=== PATIENT | male | born 1970 ===

== ENCOUNTER 2024-02-26 13:52 | Emergency (ER) | payer SELFPAY ==
[2024-02-26 14:50] VITALS: BP 106/68; PULSE 69; O2SAT 99
[2024-02-26 14:51] VITALS: BMI 25.4
[2024-02-26 14:57] VITALS: BP 103/54; PULSE 65; RESP 18; TEMP 36.6; O2SAT 98
[2024-02-26 14:58] LABS: Glucose, Whole Blood 550 mg/dL (60-115)
--- NOTE | 2024-02-26 15:20 | ECG_ITS ---
Test Reason : WEAKNESS Blood Pressure : / mmHG Vent. Rate : 070 BPM Atrial Rate : 070 BPM P-R Int : 164 ms QRS Dur : 084 ms QT Int : 440 ms P-R-T Axes : 076 018 034 degrees QTc Int : 475 ms Normal sinus rhythm Normal ECG No previous ECGs available Referred By: Kassy Mcbride Electronically Signed By:GARY AHMADI
--- NOTE | 2024-02-26 15:23 | ED_ITS ---
HPI - General Adult General Chief complaint: General Medical Stated complaint: HIGH BS,FROM [facility] PER EMS Time Seen by Provider: 02/26/24 14:50 Source: patient and EMS Mode of arrival: ambulatory Limitations: no limitations History of Present Illness ED Provider: Dr. Stephany Balderas HPI narrative: Patient comes to emergency room from [facility] complaining of high blood sugar. According to the facility they have been giving him his insulin. However, patient states that he was not given any insulin. Related Data Allergies Allergy/AdvReac Type Severity Reaction Status Date / Time No Known Allergies Allergy Verified 02/26/24 14:53 Review of Systems 2 Review of Systems: Constitutional : No Weight loss, No Fever, No Chills, No Night Sweats, No Fatigue, No Malaise ENT/Mouth : No Hearing loss, No Ear Pain, No Nasal Congestion, No Sinus Pain, No Hoarseness, No sore throat, No Rhinorrhea, No Swallowing Difficulty Eyes: No Eye Pain, No Swelling, No Redness, No Foreign Body, No Discharge, No Vision Changes Cardiovascular : No Chest Pain, No SOB, No Dyspnea on Exertion, No Orthopnea, No Edema, No Palpitations Respiratory : No Cough, No Sputum, No Wheezing, No Smoke Exposure, No Dyspnea Gastrointestinal : No Nausea, No Vomiting, No Diarrhea, No Constipation, No abdominal Pain, No Hematochezia, No Melena Genitourinary : no irregular bleeding, No Dysuria, No Urinary Frequency, No Hematuria, No Urinary Incontinence, No Urgency, No Flank Pain, No Urinary Flow Changes, No Hesitancy Musculoskeletal : No joint pain, No Myalgias, No Joint Swelling Skin : No Skin Lesions, No rash Neuro : No Weakness, No Numbness, No Paresthesias, No Loss of Consciousness, No Dizziness, No Headache Psych : No Anxiety/Panic, No Depression, No SI/HI/AH/VH, No Social Issues, Heme/Lymph: No Bruising, No Bleeding,No Lymphadenopathy Endocrine : Complaining of high blood sugar [facility] Past Medical History Medical History (Updated 02/26/24 @ 17:25 by Stephany Balderas MD) Type 2 diabetes mellitus Social History Social History Alcohol intake: former Smoked in Last 30 Days: No Use of substances other than those prescribed or required for medical reasons: No Advance Directives: No Advance Directives Information Provided: Yes Do you have a plan to hurt others: No Plan Physical Exam ED Vital Signs: Vital Signs - 24 hr 02/26/24 14:57 Temperature 97.8 F Pulse Rate 65 Respiratory Rate 18 Blood Pressure 103/54 L Pulse Oximetry 98 Oxygen Delivery Method Room Air BMI result Body Mass Index 25.4 Const Other: Appearance: Alert. Oriented X3. No acute distress. Eyes: Pupils equal, round and reactive to light. ENT: Pharynx normal. Neck: Normal inspection. Neck supple. No lymph nodes noted. No crepitus CVS: Normal heart rate and rhythm. Pulses normal. Normal S1 and S2 Respiratory: No respiratory distress. Breath sounds normal. No Wheezing. No rales Abdomen: Soft and nontender. No rigidity. No distention. Skin: Skin warm and dry. Normal skin color. Normal skin turgor. Extremities: No lower extremity edema. No Lacerations. No Rash Neuro: Oriented X 3. No motor deficit. No sensory deficit. Moving all extremities. No slurred speech. CN 2 through 12 grossly intact Psych: calm, cooperative, normal affect Medications Administered Discontinued Medications Generic Name Dose Route Start Last Admin Trade Name Freq PRN Reason Stop Dose Admin Sodium Chloride 1,000 mls @ 999 mls/hr 02/26/24 15:30 02/26/24 16:21 Ns IV 02/26/24 16:30 Infused .Q1H1M JARETT Infusion Sodium Chloride 1,000 mls @ 999 mls/hr 02/26/24 15:30 02/26/24 17:10 Ns IV 02/26/24 16:30 Infused .Q1H1M JARETT Infusion Insulin Human Regular 10 unit 02/26/24 15:23 02/26/24 15:39 Insulin Regular, Human 100 Unit/Ml 10 Ml Vial IVPUSH 02/26/24 15:24 10 unit ONCE ONE Administration Medical Decision Making Medical Decision Making MDM Narrative: Patient likely have hyperglycemia only. Patient's VBG showed no evidence of acidosis. Normal bicarb. Sugar was over 500. IV fluids along with insulin ordered. Will monitor very closely. -I received sign-out from my colleague Dr. Mcbride -patient's glucose initially was 550, sodium of 130 likely secondary to hyperglycemia. Corrected sodium within normal limits. Patient received normal saline and insulin 10 units, now glucose 226. -patient asymptomatic, ready for discharge Differential Diagnosis Differential Diagnoses: The differential diagnosis associated with the presentation includes Diabetic ketoacidosis, hyper glycemia Admission/Observation Consideration of admission/observation: Escalation of care including admission/observation considered Lab Data MDM Lab Attestation statement: I reviewed the patient's lab results. 02/26/24 15:32 02/26/24 15:32 Labs: Lab Results 02/26/24 02/26/24 02/26/24 Range/Units 14:54 15:32 15:37 WBC 2.4 L (4.8-10.8) X10*3/uL RBC 3.83 L (4.60-5.80) X10*6/uL Hgb 12.3 L (14.0-18.0) g/dl Hct 35.2 L (42.0-52.0) % MCV 91.9 (80.0-98.0) fL MCH 32.1 (27.0-33.0) pg MCHC 34.9 (31.0-36.0) g/dl RDW 13.2 (11.0-16.0) % Plt Count 68 L (160-400) X10*3/uL MPV 9.8 (9.4-12.4) fL Immature Gran % (Auto) 0.4 (0.0-0.4) % Neut % (Auto) 64.2 (45-73) % Lymph % (Auto) 18.7 L (20-40) % [place] % (Auto) 13.2 H (2-11) % Eos % (Auto) 2.6 (0-4) % Baso % (Auto) 0.9 (0-2) % Lymph # (Auto) 0.4 L (1.2-4.9) X10*3/uL [place] # (Auto) 0.3 (0.1-1.2) X10*3/uL Eos # (Auto) 0.1 (0.0-0.4) X10*3/uL Baso # (Auto) 0.0 (0.0-0.2) X10*3/uL Abs Immat Gran (auto) 0.01 (0.00-0.03) X10*3/uL Absolute Neuts (auto) 1.5 L (2.0-8.3) x10*3/uL Absolute Nucleated RBC 0.000 (0.0-0.012) X10*3/uL Nucleated RBC % (auto) 0.0 (0.0-0.2) /100WBC Smear Tech's Comments VERIFIED VBG pH 7.37 (7.32-7.43) VBG pCO2 49 mmHg VBG pO2 37 mmHg VBG HCO3 29 H (22-26) mmol/L VBG O2 Saturation 42.0 % VBG Base Excess 3.1 mmol/L Sodium 130 L (135-145) mmol/L Potassium 4.2 (3.3-5.1) mmol/L Chloride 98 (96-108) mmol/L Carbon Dioxide 27 (22-29) mmol/L Anion Gap 9 L (12-20) BUN 12 (9-16) mg/dL Creatinine 0.95 (0.5-1.4) mg/dL Estim Creat Clear Calc 84.0 Estimated GFR > 60 POC Glucose 550 H* (60-115) mg/dL Random Glucose 516 H* (60-115) mg/dL Calcium 8.5 (8.4-10.2) mg/dL Total Bilirubin 2.9 H (0.0-1.0) mg/dL Direct Bilirubin 1.3 H (0.0-0.5) mg/dL AST 38 H (5-37) U/L ALT 28 (0-40) U/L Alkaline Phosphatase 225 H (39-117) U/L Total Protein 7.6 (6.5-8.0) g/dL Albumin 2.8 L (3.5-5.0) g/dL Beta-Hydroxybutyrate 0.10 (0.02-0.27) mmol/L 02/26/24 02/26/24 Range/Units 16:06 17:01 WBC (4.8-10.8) X10*3/uL RBC (4.60-5.80) X10*6/uL Hgb (14.0-18.0) g/dl Hct (42.0-52.0) % MCV (80.0-98.0) fL MCH (27.0-33.0) pg MCHC (31.0-36.0) g/dl RDW (11.0-16.0) % Plt Count (160-400) X10*3/uL MPV (9.4-12.4) fL Immature Gran % (Auto) (0.0-0.4) % Neut % (Auto) (45-73) % Lymph % (Auto) (20-40) % [place] % (Auto) (2-11) % Eos % (Auto) (0-4) % Baso % (Auto) (0-2) % Lymph # (Auto) (1.2-4.9) X10*3/uL [place] # (Auto) (0.1-1.2) X10*3/uL Eos # (Auto) (0.0-0.4) X10*3/uL Baso # (Auto) (0.0-0.2) X10*3/uL Abs Immat Gran (auto) (0.00-0.03) X10*3/uL Absolute Neuts (auto) (2.0-8.3) x10*3/uL Absolute Nucleated RBC (0.0-0.012) X10*3/uL Nucleated RBC % (auto) (0.0-0.2) /100WBC Smear Tech's Comments VBG pH (7.32-7.43) VBG pCO2 mmHg VBG pO2 mmHg VBG HCO3 (22-26) mmol/L VBG O2 Saturation % VBG Base Excess mmol/L Sodium (135-145) mmol/L Potassium (3.3-5.1) mmol/L Chloride (96-108) mmol/L Carbon Dioxide (22-29) mmol/L Anion Gap (12-20) BUN (9-16) mg/dL Creatinine (0.5-1.4) mg/dL Estim Creat Clear Calc Estimated GFR POC Glucose 354 H* 226 H (60-115) mg/dL Random Glucose (60-115) mg/dL Calcium (8.4-10.2) mg/dL Total Bilirubin (0.0-1.0) mg/dL Direct Bilirubin (0.0-0.5) mg/dL AST (5-37) U/L ALT (0-40) U/L Alkaline Phosphatase (39-117) U/L Total Protein (6.5-8.0) g/dL Albumin (3.5-5.0) g/dL Beta-Hydroxybutyrate (0.02-0.27) mmol/L Critical Care Time Critical Care Time Critical Care Time: Yes Total Critical Care Time: 40 Attestation: I have personally provided 40 minutes of critical care time exclusive of time spent on separately billable procedures. ?Time includes review of lab data, radiology results, discussion with consultants, and monitoring for potential decompensation. ?Interventions were performed as documented above Discharge Plan Discharge Clinical Impression: Acute hyperglycemia Patient Disposition: Home, Self-Care Instructions: Diabetic Hyperglycemia (ED) Additional Instructions: Please follow-up with your primary care physician tomorrow. If you have any worsening or new symptoms, please return to the emergency room or call 911 Referrals: PhysicianElizabeth J [Primary Care Provider] - 03/01/24 Print Language: Citizen [place]
[2024-02-26] MEDS: 0.9 % Sodium Chloride 1,000 ML 999 ML IV ×2 (15:35→16:21)
[2024-02-26 15:39] LABS: Basophils Percent Auto 0.9 % (0-2); Eosinophils Absolute Auto 0.1 X10*3/uL (0.0-0.4); Eosinophils Percent Auto 2.6 % (0-4); Hematocrit 35.2 % (42.0-52.0); Hemoglobin 12.3 g/dl (14.0-18.0); Imm Gran Abs Auto 0.01 X10*3/uL (0.00-0.03); Imm Gran Pct Auto 0.4 % (0.0-0.4); Lymphocytes Absolute Auto 0.4 X10*3/uL (1.2-4.9); Lymphocytes Percent Auto 18.7 % (20-40); MANUAL DIFF FLAG SCAN; Mean Corpuscular HGB Conc 34.9 g/dl (31.0-36.0); Mean Corpuscular Hemoglobin 32.1 pg (27.0-33.0); Mean Corpuscular Volume 91.9 fL (80.0-98.0); Monocytes Absolute Auto 0.3 X10*3/uL (0.1-1.2); Monocytes Percent Auto 13.2 % (2-11); Neutrophils Absolute Auto 1.5 x10*3/uL (2.0-8.3); Neutrophils Percent Auto 64.2 % (45-73); Red Blood Count 3.83 X10*6/uL (4.60-5.80); Red Cell Distribution Width 13.2 % (11.0-16.0); SCAN SMEAR FLAG 1
[2024-02-26] MEDS: Insulin Regular, Human 100 UNIT/ML 10 ML VIAL 10 UNIT IVPUSH (15:39)
[2024-02-26 15:40] LABS: White Blood Count 2.4 X10*3/uL (4.8-10.8)
[2024-02-26 15:41] LABS: VBG Base Excess 3.1 mmol/L; VBG HCO3 29 mmol/L (22-26); VBG pCO2 49 mmHg; VBG pH 7.37 (7.32-7.43); VBG pO2 37 mmHg
[2024-02-26 15:41] LABS: Venous Blood Gas Refer to POC result
[2024-02-26 15:56] LABS: Alanine Aminotransferase 28 U/L (0-40); Albumin Level 2.8 g/dL (3.5-5.0); Alkaline Phosphatase 225 U/L (39-117); Anion Gap 9 (12-20); Aspartate Amino Transferase 38 U/L (5-37); Bilirubin Direct 1.3 mg/dL (0.0-0.5); Bilirubin Total 2.9 mg/dL (0.0-1.0); Blood Urea Nitrogen 12 mg/dL (9-16); Carbon Dioxide 27 mmol/L (22-29); Chloride 98 mmol/L (96-108); Estimated Glomerular Filt Rate > 60; Glucose Random 516 mg/dL (60-115); Potassium 4.2 mmol/L (3.3-5.1); Sodium 130 mmol/L (135-145); Total Protein 7.6 g/dL (6.5-8.0)
[2024-02-26 15:57] LABS: Mean Platelet Volume 9.8 fL (9.4-12.4); Platelet Count 68 X10*3/uL (160-400); SLIDE REVIEW VERIFIED
[2024-02-26 16:10] LABS: Calcium 8.5 mg/dL (8.4-10.2)
[2024-02-26 16:12] LABS: Glucose, Whole Blood 354 mg/dL (60-115)
--- NOTE | 2024-02-26 16:12 | PC.NURSE ---
Per provider cancel EKG.
[2024-02-26 17:08] LABS: Glucose, Whole Blood 226 mg/dL (60-115)
--- NOTE | 2024-02-26 17:29 | PC.NURSE ---
Report given to linda at [facility]. Linda stating when he arrived last night no insulin was ordered but she will speak with the MD to get both long and short acting insulin along with a diabetic diet ordered
[2024-02-26 17:43] VITALS: BP 103/54; PULSE 65; RESP 18; TEMP 36.6; O2SAT 98
== END 2024-02-26 19:45 | disposition home or self-care (01) ==
PROVIDERS: Emergency Provider Emergency Medicine Emergency Medical Services
DX: E11.65 Type 2 diabetes mellitus with hyperglycemia (principal); Z79.4 Long term (current) use of insulin
CPT/HCPCS: 36415; 80048; 80076; 82010; 82803; 82947; 85025; 93005; 96361; 96374; 99284

== ENCOUNTER → 2024-02-26 15:20 | Outpatient (BNV) | payer SELFPAY | PROVIDERS: Emergency Provider Emergency Medicine Emergency Medical Services; Visit Provider Internal Medicine | DX: R53.1 Weakness (principal) | CPT/HCPCS: 93010 ==